=== PATIENT | male | born 1995 | race Caucasian/White ===

== ENCOUNTER 2021-08-10 14:55 | Emergency (ER) | payer SELFPAY ==
[~2021-08-10] VITALS: Ht 175.3 cm; Wt 86.2 kg
[2021-08-10 15:54] LABS: BASOPHIL 0.3 % (0-2); EOSINOPHIL 0.6 % (0-5); HCT 46.7 % (42.0-52.0); HGB 16.5 g/dl (13.2-18.0); LYMPHOCYTE 21.6 % (15-48); MCH 31.3 pg (25.0-31.0); MCHC 35.3 g/dL (32.0-36.0); MCV 88.6 fL (78.0-100.0); MONOCYTE 6.3 % (0-12); NEUTROPHIL 69.9 % (41-80); NRBC 0; RBC 5.27 M/uL (4.70-6.00); RDW 11.8 % (11.5-14.0); WBC 3.2 K/uL (4.0-10.5)
[2021-08-10 15:59] LABS: PLT 99 K/uL (150-400)
[2021-08-10 16:04] LABS: BUN/CREAT RATIO (CALC) 11.2 RATIO; CREATININE 0.98 mg/dL (0.67-1.17); POTASSIUM 4.2 mmol/L (3.5-5.1)
[2021-08-10] MEDS ORDERED: ZOFRAN4 M1 PO (17:12)
== END 2021-08-10 17:50 | disposition home or self-care (01) ==
LOC: FER 14:55
PROVIDERS: Nurse Practitioner Family
DX: U07.1 COVID-19 (principal)
CPT/HCPCS: 36415; 71045; 80048; 82728; 84145; 85025; 86140; J1885; J2405; J7030